=== PATIENT | male | born 1990 | race American Indian/Alaskan Native ===

== ENCOUNTER 2017-06-14 13:24 | Emergency (ER) | payer OTHER ==
--- NOTE | 2017-06-14 14:46 | Ultrasound Report ---
FINAL REPORT PROCEDURE: US TESTICULAR DOPPLER COMP TECHNIQUE: Real-time skaggs-scale and color flow Doppler sonography in multiple planes of the scrotum, testicles, and epididymes was performed. Velocity spectral waveform analysis Doppler imaging of the arterial inflow and venous outflow of the testicles was performed with image documentation. CPT 74888 and 28829 HISTORY: pain and swelling COMPARISON: No prior studies are available for comparison. FINDINGS: RIGHT TESTICLE: Size: 4.5 x 2.5 x 3.4 cm . Appearance: Normal size and echotexture . Arterial blood flow: Normal spectral waveforms, flow velocities and color flow images.. Venous blood flow: Normal spectral waveforms and color flow images. Right epididymis: Normal size and echotexture . Hydrocele: None . LEFT TESTICLE Size: 4.3 x 2.6 x 3.2 cm . Appearance: Normal size and echotexture . Arterial blood flow: Normal spectral waveforms, flow velocities and color flow images.. Venous blood flow: Normal spectral waveforms and color flow images. Leftepididymis: It demonstrates increased Doppler flow and mild thickening. Hydrocele: None . IMPRESSION: Findings are consistent with left epididymitis
[2017-06-14 15:41] LABS: Bilirubin,Urine NEG (Negative); Blood,Urine SM (Negative); Ketones,Urine NEG (Negative); Leukocyte Esterase,Urine LG (Negative); Mucus,Urine FEW /HPF; Nitrite,Urine NEG (Negative); Urobilinogen,Urine < 2.0 mg/dL (<2.0)
[2017-06-14] MEDS ORDERED: ROCEPHIN IM ONE (16:14)
[2017-06-14] MEDS ORDERED: XYLOCAINE 1% MPF 5 mL INFILTRATI ONE (16:14)
[2017-06-14] MEDS ORDERED: ZITHROMAX PO ONE (16:14)
[2017-06-14] MEDS ORDERED: LEVAQUIN PO ONE (16:14)
--- NOTE | 2017-06-14 16:49 | Emergency Department Report ---
ED Male HPI - General Chief complaint: Urogenital-Male Stated complaint: SWOLLEN TESTICLE Time Seen by Provider: 06/14/17 14:40 Source: patient Mode of arrival: Ambulatory Limitations: No Limitations - History of Present Illness Initial comments: 27 year old male with no significant past medical history presents to the hospital complaining of left testicular swelling since yesterday. Patient denies any recent trauma. Pain is constant, aching, worse with palpation and radiates to the suprapubic area. Patient denies dysuria, penile discharge, fever, hematuria, nausea, or vomiting. Patient is uncircumcised, he is sexually active with one partner and does not use condoms. - Related Data Previous Rx's Medication Instructions Recorded Last Taken Type Ciprofloxacin HCl [Cipro] 500 mg PO BID #20 tablet 06/14/17 Unknown Rx Doxycycline [Vibramycin CAP] 100 mg PO Q12HR #20 capsule 06/14/17 Unknown Rx Allergies Allergy/AdvReac Type Severity Reaction Status Date / Time No Known Allergies Allergy Unverified 06/14/17 13:27 ED Review of Systems ROS: Stated complaint: SWOLLEN TESTICLE Other details as noted in HPI Comment: All other systems reviewed and negative Other: Constitutional: No fevers chills Eyes: No eye pain visual changes ENT: No ear pain or throat pain Neck: Denies pain Respiratory: Denies cough wheezing shortness of breath Cardiovascular: Denies chest pain, palpitations, syncope GI: Denies nausea, vomiting, diarrhea : Denies dysuria Musculoskeletal: Denies back pain Skin: Denies rash, lesions, erythema Neurologic: Denies headache, numbness, weakness Psychiatric: Denies suicidal ideation, hallucinations Hematological/lymphatic: Denies easy bruising, lymphadenopathy ED Past Medical Hx - Past Medical History Previous Medical History?: No - Surgical History Past Surgical History?: No - Social History Smoking Status: Current Every Day Smoker Substance Use Type: Marijuana - Medications Home Medications: Home Medications Medication Instructions Recorded Confirmed Last Taken Type Ciprofloxacin HCl [Cipro] 500 mg PO BID #20 tablet 06/14/17 Unknown Rx Doxycycline [Vibramycin CAP] 100 mg PO Q12HR #20 capsule 06/14/17 Unknown Rx ED Physical Exam - General Limitations: No Limitations - Other Other exam information: General: No limitations, patient is alert in no acute distress Head exam: Atraumatic, normocephalic Eyes exam: Normal appearance ENT: Moist mucous membrane, normal oropharynx Neck exam: Normal inspection, full range of motion, no meningismus nontender Respiratory exam: Clear to auscultation bilateral, no wheezes, rales, crackles Cardiovascular: Normal rate and rhythm, normal heart sounds Abdomen: Soft, nondistended, suprapubic tenderness, with normal bowel sounds, no rebound, or guarding : Circumcised, no penile lesions or discharge, tenderness to left scrotal maximum at the epididymis, vertical lie Extremity: Full range of motion normal inspection no deformity Back: Normal Inspection, full range of motion, no tenderness Neurologic: Alert, oriented x3, cranial nerves intact, no motor or sensory deficit Psychiatric: normal affect, normal mood Skin: Warm, dry, intact ED Course Vital Signs 06/14/17 13:27 Temperature 98.5 F Pulse Rate 72 Respiratory 20 Rate Blood Pressure 118/80 O2 Sat by Pulse 97 Oximetry - Reevaluation(s) Reevaluation #1: 06/14/17 16:49 Patient declined pain medication. Received IM Rocephin and azithromycin to treat for gonorrhea/chlamydia and by mouth Levaquin ED Medical Decision Making - Radiology Data Radiology results: report reviewed Testicular ultrasound. Findings consistent with left epididymitis. - Medical Decision Making Patient appeared to be treated for gonorrhea Chlamydia. Culture pending. Will be discharged on levaquin and doxy for UTI and st associated epididymitis. Despite his age he is at increased risk for UTI and infection given that he is uncircumcised - Differential Diagnosis torsion, epididymitis, UTI Critical Care Time: No Critical care attestation.: If time is entered above; I have spent that time in minutes in the direct care of this critically ill patient, excluding procedure time. ED Disposition Clinical Impression: Epididymitis, left Disposition: [id number] TO HOME OR SELFCARE Is pt being admited?: No Does the pt Need Aspirin: No Condition: Stable Instructions: Epididymitis (ED) Additional Instructions: Take the medication as prescribed. Use the Good Rx card to make your medications more affordable. Return if symptoms worsen. Being treated for a urinary tract infection/epididymitis as well as a sexually transmitted diseases while cultures are pending. Your gonorrhea and chlamydia tests are pending and take approximately 3-4 days result. You may obtain results in medical records with a photo ID. You may also obtain results through the follow-up doctor office via medical record request. Refrain from sexual until 7 days after completion of treatment. If the cultures come back positive your partner will need treatment as well. Prescriptions: Ciprofloxacin HCl [Cipro] 500 mg PO BID #20 tablet Doxycycline [Vibramycin CAP] 100 mg PO Q12HR #20 capsule Referrals: [facility] [Provider Group] - 3-5 Days Forms: STI Treatment and Prevention Time of Disposition: 17:04
[2017-06-14 17:20] VITALS: BP 121/49
== END 2017-06-14 17:21 | disposition home or self-care (01) ==
LOC: ED 13:24
DX: N45.1 Epididymitis (principal); F17.200 Nicotine dependence, unspecified, uncomplicated; F12.10 Cannabis abuse, uncomplicated
CPT/HCPCS: 81001; 87086; 87591; 93975; 96372; 99284; J0696